=== PATIENT | male | born 1970 | race American Indian/Alaskan Native ===

== ENCOUNTER 2016-11-29 16:32 | Emergency (ER) | payer SELFPAY ==
[2016-11-29 16:49] VITALS: BP 137/98
--- NOTE | 2016-11-29 17:22 | Emergency Department Report ---
Chief Complaint: Chest Pain Stated Complaint: CHEST PAIN Time Seen by Provider: 11/29/16 17:18 - HPI History of Present Illness: 46-year-old male presents today with chest pain 2 days. Positive for radiation to left arm. Denies injury or trauma. Positive for shortness of breath. Denies fever, nausea, vomiting, abdominal pain. - ROS Review of Systems: Per HPI - Exam Vital Signs: Vital Signs 11/29/16 16:46 Temperature 98.1 F Pulse Rate 112 H Respiratory 16 Rate Blood Pressure 137/98 O2 Sat by Pulse 100 Oximetry Physical Exam: General: 46-year-old male in no acute distress. Well-developed, well-nourished. CV: Regular rate and rhythm. Lungs: Clear to auscultation bilaterally. Chest wall: Tenderness to palpation of the anterior chest wall. MSE screening note: Focused history and physical exam performed. Due to findings the following was ordered: ED Disposition for MSE Condition: Stable
[2016-11-29 17:45] LABS: Basophils % (Auto) 0.3 % (0.0-1.8); Eosinophils % (Auto) 1.1 % (0.0-4.3); Hematocrit 43.1 % (35.5-45.6); Hemoglobin 14.2 gm/dl (11.8-15.2); Mean Corpuscular HGB Conc 33 % (32-34); Mean Corpuscular Hemoglobin 31 pg (28-32); Mean Corpuscular Volume 94 fl (84-94); Platelet Count 284 K/mm3 (140-440); Red Cell Distribution Width 13.4 % (13.2-15.2); White Blood Count 11.4 K/mm3 (4.5-11.0)
[2016-11-29 18:07] LABS: Anion Gap 18 mmol/L; Blood Urea Nitrogen 9 mg/dL (9-20); Carbon Dioxide 25 mmol/L (22-30); Chloride 97.9 mmol/L (98-107); Creatine Kinase 97 units/L (55-170); Glucose 264 mg/dL (75-100); Lipase 34 units/L (13-60); Potassium 3.8 mmol/L (3.6-5.0); Sodium 137 mmol/L (137-145)
[2016-11-29 18:21] LABS: Creatine Kinase MB < 1.0 ng/mL (0.0-4.0)
--- NOTE | 2016-11-30 08:09 | XRay Report ---
CHEST TWO VIEWS: 11/29/16 16:32:00 CLINICAL: Chest pain. COMPARISON: None FINDINGS: Normal heart and pulmonary vasculature. The lungs are normally expanded and clear.The bones and soft tissues are unremarkable. IMPRESSION: Normal chest.
--- NOTE | 2016-12-01 05:27 | ED Elopement Review ---
ED Pt Elopement review - Results review Lab results: Laboratory Tests 11/29/16 11/29/16 17:37 17:37 WBC 11.4 H RBC 4.60 Hgb 14.2 Hct 43.1 MCV 94 MCH 31 MCHC 33 RDW 13.4 Plt Count 284 Lymph % (Auto) 37.7 H Hancock % (Auto) 6.5 Eos % (Auto) 1.1 Baso % (Auto) 0.3 Lymph # 4.3 Hancock # 0.7 Eos # 0.1 Baso # 0.0 Seg Neutrophils % 54.4 Seg Neutrophils # 6.2 Sodium 137 Potassium 3.8 Chloride 97.9 L Carbon Dioxide 25 Anion Gap 18 BUN 9 Creatinine 0.9 Estimated GFR > 60 BUN/Creatinine Ratio 10.00 Glucose 264 H Calcium 9.0 Total Creatine Kinase 97 CK-MB (CK-2) < 1.0 CK-MB (CK-2) Rel Index 1.0 Troponin T < 0.010 Lipase 34 - Call Back decision Pt Call Back Decision: Pt to F/U with PMD
== END 2016-11-30 07:20 | disposition left against medical advice (07) ==
LOC: ED 16:32
DX: R07.89 Other chest pain (principal); M79.602 Pain in left arm; Z53.21 Procedure and treatment not carried out due to patient leaving prior to being seen by health care provider
CPT/HCPCS: 36415; 71020; 80048; 82550; 82553; 83690; 84484; 85025; 93005; 93010

== ENCOUNTER 2017-12-01 19:40 | Emergency (ER) | payer SELFPAY ==
[2017-12-01 20:36] VITALS: BP 133/88
--- NOTE | 2017-12-01 21:55 | XRay Report ---
FINAL REPORT EXAM: XR FINGER(S) 2+V RT HISTORY: Right thumb pain. TECHNIQUE: Three views right thumb Comparison: None FINDINGS: No trauma history is provided. Normal bony mineralization. Normal alignment. There is ill-defined calcific density at the radial aspect of the base of the 1st metacarpal seen on the reverse oblique and lateral projection only. IMPRESSION: No definite fracture or dislocation. 3 millimeter calcific density along the radial aspect of the base of the 1st metacarpal at the carpometacarpal junction on 2 of the images only. Correlate with region of pain and possibly cross-sectional imaging if ligamentous injury is suspected.
== END 2017-12-02 03:30 | disposition left against medical advice (07) ==
LOC: ED 19:40
DX: M79.641 Pain in right hand (principal); Z53.21 Procedure and treatment not carried out due to patient leaving prior to being seen by health care provider

== ENCOUNTER 2019-11-08 10:20 | Emergency (ER) | payer SELFPAY ==
--- NOTE | 2019-11-08 11:23 | XRay Report ---
RIGHT HAND, AP AND LATERAL VIEWS LATERAL VIEW RIGHT WRIST RIGHT FOREARM AP AND LATERAL VIEWS INDICATION: injury. COMPARISON: No relevant prior imaging study available. FINDINGS: Right hand: No acute fracture or dislocation is seen. No significant degenerative change. Lateral right wrist: Carpal alignment is normal. No fracture is seen. Right forearm: No acute fracture or dislocation. No focal soft tissue swelling. IMPRESSION: 1. No acute findings. 2. Dedicated 4 view wrist exam would be useful to better assess for carpal fracture. Only a lateral v iew was included of the wrist. Signer Name: Ankit Lopez MD Signed: 11/08/2019 11:19 AM Workstation Name: [id number]
--- NOTE | 2019-11-08 12:20 | Emergency Department Report ---
ED Extremity Problem HPI - General Chief complaint: Extremity Injury, Upper Stated complaint: RT HAND SORE/STIFF Time Seen by Provider: 11/08/19 12:19 Source: patient Mode of arrival: Ambulatory Limitations: No Limitations - History of Present Illness Initial comments: pt presents to the ED with c/o right hand, right wrist and right thumb that began a week ago. states he does heavy lifting and does repetitive movements at work. states he has had swelling. he denies any numbness or weakness. he has had this on and off for several years. he has not seen anyone for it. does not have a PCP. PMHx DM. no allergies to meds. - Related Data Previous Rx's Medication Instructions Recorded Last Taken Type Acetaminophen/Codeine [Tylenol 1 tab PO Q6H PRN #20 tab 01/15/16 Unknown Rx /Codeine # 3 tab] Cyclobenzaprine HCl [Flexeril 5 MG 5 mg PO TID PRN #15 tab 01/15/16 Unknown Rx TAB] Ibuprofen [Motrin 800 MG tab] 800 mg PO Q8HR PRN #30 tablet 01/15/16 Unknown Rx Naproxen [EC-Naproxen] 500 mg PO BID PRN #14 tablet. 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 11/08/19 Unknown Rx ED Physical Exam - General Limitations: No Limitations General appearance: alert, in no apparent distress - Head Head exam: Present: atraumatic, normocephalic - Eye Eye exam: Present: normal appearance - ENT ENT exam: Present: mucous membranes moist - Extremities Exam Extremities exam: Present: other (no bony TTP, pt has discomfort with full flexion of the thumb, FROM of the right digits, hand, wrist, and elbow, no edema, no erythema, no joint laxity, (+) kajal test) - Neurological Exam Neurological exam: Present: alert, oriented X3 - Psychiatric Psychiatric exam: Present: normal affect, normal mood - Skin Skin exam: Present: warm, dry, intact ED Course Vital Signs 11/08/19 12:19 Temperature 97.6 F Pulse Rate 95 H Respiratory 18 Rate Blood Pressure 132/96 [Left] O2 Sat by Pulse 99 Oximetry ED Medical Decision Making - Lab Data Vital Signs 11/08/19 12:19 Temperature 97.6 F Pulse Rate 95 H Respiratory 18 Rate Blood Pressure 132/96 [Left] O2 Sat by Pulse 99 Oximetry - Radiology Data Radiology results: report reviewed RIGHT HAND, AP AND LATERAL VIEWS LATERAL VIEW RIGHT WRIST RIGHT FOREARM AP AND LATERAL VIEWS INDICATION: injury. COMPARISON: No relevant prior imaging study available. FINDINGS: Right hand: No acute fracture or dislocation is seen. No significant degenerative change. Lateral right wrist: Carpal alignment is normal. No fracture is seen. Right forearm: No acute fracture or dislocation. No focal soft tissue swelling. IMPRESSION: 1. No acute findings. 2. Dedicated 4 view wrist exam would be useful to better assess for carpal fracture. Only a lateral view was included of the wrist. Signer Name: Ankit Lopez MD Signed: 11/08/2019 11:19 AM Workstation Name: [id number] Transcribed By: EMRE Dictated By: Ankit Lopez MD Electronically Authenticated By: Ankit Lopez MD Signed Date/Time: 11/08/19 1119 DD/ 1115 TD/TT: - Medical Decision Making pt presents to the ED with c/o right hand, right wrist and right thumb that began a week ago. states he does heavy lifting and does repetitive movements at work. states he has had swelling. he denies any numbness or weakness. he has had this on and off for several years. he has not seen anyone for it. does not have a PCP. PMHx DM. no allergies to meds. VSS. on exam: no bony TTP, pt has discomfort with full flexion of the thumb, FROM of the right digits, hand, wrist, and elbow, no edema, no erythema, no joint laxity, (+) kajal test. could be related to arthritis, vs carpal tunnel vs de Quervain's. xrays were ordered prior to my examination in triage. XR right hand, right wrist, and right forearm: 1. No acute findings. 2. Dedicated 4 view wrist exam would be useful to better assess for carpal fracture. Only a lateral view was included of the wrist. no signs of septic joint or tenosynovitis. pt given prescription for naproxen. advised pt to please take medication as prescribed as needed. may use a wrist splint while working, do not wear at night. may rest, use ice for 15 minutes at a time. follow up with a primary care doctor and an orthopedic doctor. return to the emergency room for any new or worsening symptoms. - Differential Diagnosis arthritis, de Quervain's, RA, strain, sprain Critical care attestation.: If time is entered above; I have spent that time in minutes in the direct care of this critically ill patient, excluding procedure time. ED Disposition Clinical Impression: Pain of right thumb, Right wrist pain Disposition: - TO HOME OR SELFCARE Is pt being admited?: No Does the pt Need Aspirin: No Condition: Stable Instructions: Osteoarthritis (ED) Additional Instructions: please take medication as prescribed as needed. may use a wrist splint while working, do not wear at night. may rest, use ice for 15 minutes at a time. follow up with a primary care doctor and an orthopedic doctor. return to the emergency room for any new or worsening symptoms. Prescriptions: Naproxen [EC-Naproxen] 500 mg PO BID PRN #14 tablet.dr NEFF Reason: pain Referrals: NIRMALA BRENNAN MD [Staff Physician] - 2-3 Days [facility] [Outside] - 2-3 Days MARLEE MAGALLON MD [Staff Physician] - 2-3 Days Forms: Work/School Release Form(ED) Time of Disposition: 12:27 Print Language: OCCITAN
[2019-11-08 12:23] VITALS: BP 132/96
== END 2019-11-08 13:16 | disposition home or self-care (01) ==
LOC: ED 10:20
DX: M79.644 Pain in right finger(s) (principal); M25.531 Pain in right wrist; I10 Essential (primary) hypertension; Z98.890 Other specified postprocedural states; Z79.1 Long term (current) use of non-steroidal anti-inflammatories (NSAID); Z79.899 Other long term (current) drug therapy